=== PATIENT | male | born 1985 | race Caucasian/White ===

== ENCOUNTER 2022-12-02 06:42 | Outpatient (CLI) | payer BC, SELFPAY ==
--- NOTE | ~2022-12-02 | CT_ITS ---
EXAMINATION: CT pelvis w con DATE: 12/02/2022 07:28 INDICATION: Prostatitis. TECHNIQUE: Computed tomography (CT) of the pelvis was performed with 100 cc Omnipaque 350 intravenous contrast. The dose-length product was 969.99 mGy-cm. Automated exposure control and iterative recons truction technique were employed. COMPARISON: None FINDINGS: No significant bowel abnormality. Moderate fecal loading of the distal colon. No free air o r free fluid. There are coarse calcifications of the prostate gland. Bladder is decompressed limiting evaluation for bladder wall thickening. No lymphadenopathy. No significant vascular abnormality. Nor mal appendix. No acute osseous abnormality. IMPRESSION: 1. No acute abnormality of the pelvis. Reviewed, dictated and finalized at location A.
--- NOTE | ~2022-12-02 | XR_ITS ---
XR abdomen/kub 1V 12/02/2022 07:16 Indication: Prostatitis Procedure: KUB Comparison: No prior studies for comparison. Findings: Bowel gas pattern is nonobstructive. No abnormal calcifications. No evidence for organomega ly. No acute osseous abnormality. Moderate colonic fecal loading. Impression: 1: No acute abdominal abnormality. Reviewed, dictated and finalized at location A. Impression: 1: No acute abdominal abnormality.
== END 2022-12-02 06:43 | disposition home or self-care (01) ==
LOC: ANHIMG 06:44
PROVIDERS: PCP Physician Assistant; Visit Provider Nurse Practitioner Adult Health
DX: N41.0 Acute prostatitis (principal)
CPT/HCPCS: 72193; 74018; Q9967